=== PATIENT | male | born 1985 | race Caucasian/White ===

== ENCOUNTER 2018-02-11 07:38 | Emergency (ER) | payer OTHER ==
[~2018-02-11] VITALS: Ht 180.3 cm; Wt 77.3 kg
[2018-02-11 08:24] LABS: APPEARANCE,URINE CLEAR (CLEAR); BILIRUBIN,URINE NEGATIVE (NEGATIVE); GLUCOSE, URINE (UA) NEGATIVE (NEGATIVE); KETONES,URINE NEGATIVE (NEGATIVE); LEUKOCYTE ESTERASE ,URINE NEGATIVE (NEGATIVE); NITRATE,URINE NEGATIVE (NEGATIVE); OCCULT BLOOD,URINE NEGATIVE (NEGATIVE); PROTEIN,URINE NEGATIVE (NEGATIVE); UROBILINOGEN,URINE 0.2 mg/dL (<=1.0)
[2018-02-11 08:55] LABS: BACTERIA,URINE None Seen /HPF (None Seen); RBC,URINE None Seen /HPF (0-2); WBC,URINE None Seen /HPF (0-5)
[2018-02-11] MEDS: AZITHROMYCIN 250 MG TABLET PO ONE (09:20)
[2018-02-11 09:22] VITALS: BP 128/87
== END 2018-02-11 09:40 | disposition home or self-care (01) ==
LOC: EMS 07:46
DX: N34.2 Other urethritis (principal)

== ENCOUNTER 2018-03-18 09:39 | Emergency (ER) | payer OTHER ==
[~2018-03-18] VITALS: Ht 182.9 cm; Wt 79.5 kg
[2018-03-18 09:43] VITALS: BP 130/99
[2018-03-18] MEDS ORDERED: IBUPROFEN 600 MG TABLET PO ONE (10:00)
== END 2018-03-18 10:57 | disposition home or self-care (01) ==
LOC: EMS 09:40
DX: S01.01XA Laceration without foreign body of scalp, initial encounter (principal); W22.8XXA Striking against or struck by other objects, initial encounter; Y93.89 Activity, other specified; Y92.69 Other specified industrial and construction area as the place of occurrence of the external cause; Y99.0 Civilian activity done for income or pay
CPT/HCPCS: 12001

== ENCOUNTER 2018-03-27 13:00 | Emergency (ER) | payer OTHER ==
[~2018-03-27] VITALS: Ht 182.9 cm; Wt 88.6 kg
[2018-03-27 13:26] VITALS: BP 123/62
== END 2018-03-27 14:18 | disposition home or self-care (01) ==
LOC: EMS 13:01
DX: S01.01XD Laceration without foreign body of scalp, subsequent encounter (principal); R03.0 Elevated blood-pressure reading, without diagnosis of hypertension; X58.XXXD Exposure to other specified factors, subsequent encounter